=== PATIENT | female | born 1995 | race Caucasian/White ===

== ENCOUNTER 2017-03-05 12:00 | Emergency (ER) | payer BC ==
[2017-03-05 12:07] VITALS: RESP 18; TEMP 97.7; O2SAT 97
--- NOTE | 2017-03-05 12:09 | EDPHY ---
HPI/HX/ROS/PE/MDM Narrative: CHIEF COMPLAINT: Left flank pain HPI: The patient is a 21 y/o female complaining of left flank pain for the past 6 days. She had urinary frequency that began 1 week ago. She was seen at the [facility] on , 3 days ago, and was diagnosed with a UTI and Trichomonas. She has been taking antibiotics for her UTI since , with improved urinary symptoms. However, her left flank pain has worsened. She has taken Advil for pain relief. Denies burning sensation while urinating, bowel complaints, fever, paresthesias or other worsening symptoms. REVIEW OF SYSTEMS: Aside from elements discussed in the HPI, a comprehensive 10-point review of systems was reviewed and is negative. PMH: Trichomonas, anemia, scoliosis, anxiety, depression, ADHD, dilated aortic root, tonsillectomy SOCIAL HISTORY: Mother at bedside, student at PHYSICAL EXAM: General:Patient is alert, in no acute distress. ENT:Eyes are normal to inspection. ENT inspection normal. Neck: Normal inspection. Full range of motion. Respiratory:No respiratory distress. Breath sounds normal bilaterally. Cardiovascular: Regular rate and rhythm. Strong peripheral pulses. Normal cap refill. Abdomen:The abdomen is nontender to palpation. There are no peritoneal signs. There are normal bowel sounds. Back: Left-sided CVA tenderness. Otherwise normal to inspection. Skin: Normal color. No rash. Warm and dry. Extremities: Normal appearance. Full range of motion. Neuro: Oriented x3. Normal motor function. Normal sensory function. Portions of this note were transcribed by an ED scribe. I personally performed the history, physical exam, and medical decision making; and confirm the accuracy of the information in the transcribed note. ED Course: 1230: Patient comfortable. Abdomen benign. 1300: Patient comfortable. VSS. 1341: Spoke with radiologist, he reports the patients abdominopelvic CT is unremarkable. 1345: Reassessed patient and discussed imaging findings. Return precautions provided; patient is comfortable with this plan. MDM: This patient presents with L flank/CVA pain in the setting of a UTI that was diagnosed and treated by [facility] a few days ago. Her UA is negative and her WBC is normal. I do not have access to [facility] records and patient does not have her results. Given that it would be somewhat atypical to have pyelonephritis as a cause of flank pain with a normal urine and normal WBC, we discussed performing a CTAP to rule out other potential pathology, and patient and family were agreeable to this. This thankfully is normal, and shows constipation. I discussed this with patient and family. The patient is declining a repeat pelvic exam at this time. Given reported negative pelvic exam and position of pain high up in flank, I do not think an emergeny pelvic ultrasound is indicated. After discussion of discharge plan, the patient requested a prescription for pain medication - I suggested ibuprofen, as I see no indication for narcotics, particularly since these would likely make constipation worse. The patient has been comfortable throughout her ED course without pain medication. Following this discussion, the patient became very angry both with myself, the primary nurse and her parents. - Data Points Imaging: Discussed imaging studies w/ scallop binder Radiologist, I viewed and interpreted images myself Laboratory Results: Laboratory Results 03/05/17 12:20 03/05/17 12:20 03/05/17 03/05/17 03/05/17 12:20 12:20 12:20 WBC 7.06 10^3/uL 10^3/uL (3.80-9.50) RBC 5.43 10^6/uL H 10^6/uL (4.18-5.33) Hgb 14.2 g/dL g/dL (12.6-16.3) Hct 44.5 % % (38.0-47.0) MCV 82.0 fL fL (81.5-99.8) MCH 26.2 pg L pg (27.9-34.1) MCHC 31.9 g/dL L g/dL (32.4-36.7) RDW 13.9 % % (11.5-15.2) Plt Count 197 10^3/uL 10^3/uL (150-400) MPV 10.1 fL fL (8.7-11.7) Neut % (Auto) 56.2 % % (39.3-74.2) Lymph % (Auto) 33.0 % % (15.0-45.0) [place] % (Auto) 8.8 % % (4.5-13.0) Eos % (Auto) 1.3 % % (0.6-7.6) Baso % (Auto) 0.4 % % (0.3-1.7) Nucleat RBC Rel Count 0.0 % % (0.0-0.2) Absolute Neuts (auto) 3.97 10^3/uL 10^3/uL (1.70-6.50) Absolute Lymphs (auto) 2.33 10^3/uL 10^3/uL (1.00-3.00) Absolute Monos (auto) 0.62 10^3/uL 10^3/uL (0.30-0.80) Absolute Eos (auto) 0.09 10^3/uL 10^3/uL (0.03-0.40) Absolute Basos (auto) 0.03 10^3/uL 10^3/uL (0.02-0.10) Absolute Nucleated RBC 0.00 10^3/uL 10^3/uL (0-0.01) Immature Gran % 0.3 % % (0.0-1.1) Immature Gran # 0.02 10^3/uL 10^3/uL (0.00-0.10) Sodium 140 mEq/L mEq/L (134-144) Potassium 4.2 mEq/L mEq/L (3.5-5.2) Chloride 106 mEq/L mEq/L (97-110) Carbon Dioxide 24 mEq/l mEq/l (22-31) Anion Gap 10 mEq/L mEq/L (8-16) BUN 8 mg/dL mg/dL (7-23) Creatinine 0.7 mg/dL mg/dL (0.6-1.0) Estimated GFR > 60 Glucose 107 mg/dL H mg/dL (70-100) Calcium 10.2 mg/dL mg/dL (8.5-10.4) Beta HCG, Qual NEGATIVE Urine Color Urine Appearance Urine pH Ur Specific [place] Urine Protein Urine Ketones Urine Blood Urine Nitrate Urine Bilirubin Urine Urobilinogen Ur Leukocyte Esterase Urine Glucose 03/05/17 12:07 WBC RBC Hgb Hct MCV MCH MCHC RDW Plt Count MPV Neut % (Auto) Lymph % (Auto) [place] % (Auto) Eos % (Auto) Baso % (Auto) Nucleat RBC Rel Count Absolute Neuts (auto) Absolute Lymphs (auto) Absolute Monos (auto) Absolute Eos (auto) Absolute Basos (auto) Absolute Nucleated RBC Immature Gran % Immature Gran # Sodium Potassium Chloride Carbon Dioxide Anion Gap BUN Creatinine Estimated GFR Glucose Calcium Beta HCG, Qual Urine Color PALE YELLOW Urine Appearance CLEAR Urine pH 8.0 H (5.0-7.5) Ur Specific [place] 1.001 L (1.002-1.030) Urine Protein NEGATIVE (NEGATIVE) Urine Ketones NEGATIVE (NEGATIVE) Urine Blood NEGATIVE (NEGATIVE) Urine Nitrate NEGATIVE (NEGATIVE) Urine Bilirubin NEGATIVE (NEGATIVE) Urine Urobilinogen NEGATIVE EU EU (0.2-1.0) Ur Leukocyte Esterase NEGATIVE (NEGATIVE) Urine Glucose NEGATIVE (NEGATIVE) Medications Given: Discontinued Medications Hydrocodone Bitart/Acetaminophen ([place] 5/325) 1 tab PO EDNOW ONE Stop: 03/05/17 12:12 Last Admin: 03/05/17 12:22 Dose: Not Given Cyclobenzaprine HCl (Flexeril) 10 mg PO EDNOW ONE Stop: 03/05/17 12:12 Last Admin: 03/05/17 12:22 Dose: Not Given Sodium Chloride (Ns) 1,000 mls @ 0 mls/hr IV EDNOW ONE; Wide Open PRN Reason: Protocol Stop: 03/05/17 12:55 Last Admin: 03/05/17 12:58 Dose: 1,000 mls General Time Seen by Provider: 03/05/17 12:08 Initial Vital Signs: Initial Vital Signs Temperature (C) 36.5 C 03/05/17 12:04 Heart Rate 68 03/05/17 12:04 Respiratory Rate 18 03/05/17 12:04 Blood Pressure 109/68 03/05/17 12:04 O2 Sat (%) 97 03/05/17 12:04 O2 Delivery Mode Room Air Allergies/Adverse Reactions: No Known Allergies Allergy (Unverified 03/05/17 12:03) Home Medications: Medication Instructions Recorded Flagyl 03/05/17 MIRENA 03/05/17 Nitrofurantoin 03/05/17 Departure - Departure Disposition: Home, Routine, Self-Care Clinical Impression: Flank pain Condition: Good Instructions: Flank Pain (ED) Additional Instructions: Follow-up with your primary doctor within 72 hours. Return to the Emergency Department for fever, chest pain, shortness of breath, urinary or bowel complaints, increasing pain or other worsening of condition. Referrals: [facility] [Other] - As per Instructions Report Scribed for: Eric Sullivan Report Scribed by: Mireille Bowen Date of Report: 03/05/17 Time of Report: 12:09
[2017-03-05] MEDS: CYCLOBENZAPRINE 10 MG TAB PO ONE (12:22)
[2017-03-05] MEDS: HYDROCODONE/APAP 5/325 TAB PO ONE (12:22)
[2017-03-05 12:24] LABS: COLOR PALE YELLOW; LEUKOCYTE ESTERASE,URINE NEGATIVE (NEGATIVE); NITRITE,URINE NEGATIVE (NEGATIVE)
[2017-03-05 12:36] LABS: % IMMATURE GRANULYOCYTES 0.3 % (0.0-1.1); ABSOLUTE IMMATURE GRANULOCYTES 0.02 10^3/uL (0.00-0.10); ADD DIFF? NO; ADD MORPH? NO; ADD SCAN? NO; ATYPICAL LYMPHOCYTE FLAG 0 (0-99); FRAGMENT RBC FLAG 0 (0-99); HEMATOCRIT 44.5 % (38.0-47.0); HEMOGLOBIN 14.2 g/dL (12.6-16.3); LEFT SHIFT FLG 0 (0-99); LIPEMIA HEMOLYSIS FLAG 80 (0-99); MEAN CELL HEMOGLOBIN 26.2 pg (27.9-34.1); MEAN CELL HEMOGLOBIN CONCENTR. 31.9 g/dL (32.4-36.7); MEAN PLATELET VOLUME 10.1 fL (8.7-11.7); PLATELET CLUMPS FLAG 0 (0-99); PLATELET COUNT 197 10^3/uL (150-400); RED BLOOD CELL COUNT 5.43 10^6/uL (4.18-5.33); RED CELL DISTRIBUTION WIDTH 13.9 % (11.5-15.2)
[2017-03-05 12:46] LABS: ANION GAP 10 mEq/L (8-16); CALCIUM 10.2 mg/dL (8.5-10.4); CARBON DIOXIDE 24 mEq/l (22-31); CHLORIDE 106 mEq/L (97-110); CREATININE 0.7 mg/dL (0.6-1.0); GLOMERULAR FILTRATION RATE > 60; GLUCOSE 107 mg/dL (70-100); POTASSIUM 4.2 mEq/L (3.5-5.2); SODIUM 140 mEq/L (134-144)
[2017-03-05] MEDS: NS 1,000 ML IV ONE (12:58)
[2017-03-05] MEDS ORDERED: IOPAMIDOL (ISOVUE-300) 100 ML BTL ONE (13:05)
[2017-03-05 13:30] VITALS: BP 108/60; PULSE 67
[2017-03-05] MEDS: IBUPROFEN 600 MG TAB PO ONE (13:58)
== END 2017-03-05 14:05 | disposition home or self-care (01) ==
DX: R10.9 Unspecified abdominal pain (principal); E86.9 Volume depletion, unspecified
CPT/HCPCS: Q9967